=== PATIENT | female | born 1980 | race Caucasian/White ===

== ENCOUNTER 2025-08-10 09:34 | Outpatient (CLI) | payer MEDICAID ==
--- NOTE | 2025-08-10 11:41 | RADIOLOGY REPORT ---
INDICATION: GENERALIZED ABDOMINAL PAIN R/O GALLBLADDER DISEASE TECHNIQUE: Multiple real-time sonographic images of the abdomen were obtained. COMPARISON: None FINDINGS: The liver is increased in echogenicity. The liver measures 17.4 cm. No intrahepatic biliary ductal dilatation is noted. The gallbladder wall measures 0.2 cm and is unremarkable. No gallstones or sludge is seen. The common duct measures 0.2 cm and is unremarkable. No pericholecystic fluid is noted. Negative sonographic cruz's sign. The right kidney measures 10.5 cm. No hydronephrosis. The pancreas is not well visualized due to obscuration from bowel gas. The visualized portions of the IVC and aorta are grossly unremarkable. IMPRESSION: 1. No sonographic evidence of cholelithiasis or acute cholecystitis. 2. Hepatic steatosis.
== END 2025-08-10 23:59 | disposition home or self-care (01) ==
LOC: RAD 09:34
PROVIDERS: ATTEND Family Medicine
DX: K76.0 Fatty (change of) liver, not elsewhere classified (principal); R10.84 Generalized abdominal pain
CPT/HCPCS: 76700